=== PATIENT | male | born 1965 | race African-American/Black ===

== ENCOUNTER 2022-10-26 15:44 | Emergency (ER) | payer SELFPAY ==
[2022-10-26 17:15] LABS: SARS-COV-2 RT PCR NEGATIVE (NEGATIVE)
--- NOTE | 2022-10-26 17:27 | RAD REPORT ---
EXAM DESCRIPTION: RAD - Chest Single View - 10/26/2022 5:20 pm CLINICAL HISTORY: COUGH Chest pain. COMPARISON: No comparisons FINDINGS: Portable technique limits examination quality. The lungs are grossly clear. The heart is normal in size. No displaced fractures. IMPRESSION: No acute intrathoracic process suspected.
--- NOTE | 2022-10-26 17:46 | ER ---
Nurse's Notes [facility] Name: Jayjay Cano Age: 57 yrs Sex: Male : 1965 Arrival Date: 10/26/2022 Time: 15:46 Bed IW6 Private MD: Diagnosis: Acute upper respiratory infection, unspecified Presentation: 10/26 15:51 Chief complaint: Patient states: Chest cold, cough, phlegm, N/V/D X 1 week. Coronavirus ld1 screen: At this time, the client does not indicate any symptoms associated with coronavirus-19. Ebola Screen: No symptoms or risks identified at this time. Initial Sepsis Screen: Does the patient meet any 2 criteria? No. Patient's initial sepsis screen is negative. Does the patient have a suspected source of infection? No. Patient's initial sepsis screen is negative. Risk Assessment: Do you want to hurt yourself or someone else? Patient reports no desire to harm self or others. Onset of symptoms was October 26, 2022. 15:51 Method Of Arrival: Ambulatory ld1 15:51 Acuity: JUSTINE 4 ld1 Triage Assessment: 15:52 General: Appears in no apparent distress. comfortable, Behavior is calm, cooperative, ld1 appropriate for age. Pain: Denies pain. EENT: No signs and/or symptoms were reported regarding the EENT system. Neuro: Level of Consciousness is awake, alert, obeys commands, Oriented to person, place, time, situation. Cardiovascular: Capillary refill < 3 seconds Patient's skin is warm and dry. Respiratory: Airway is patent Respiratory effort is even, unlabored. GI: Abdomen is flat, non-distended. : No signs and/or symptoms were reported regarding the genitourinary system. Derm: No signs and/or symptoms reported regarding the dermatologic system. Musculoskeletal: No signs and/or symptoms reported regarding the musculoskeletal system. Historical: - Allergies: 15:52 No Known Allergies; ld1 - PMHx: 15:52 None; ld1 - PSHx: 15:52 None; ld1 - Immunization history:: Adult Immunizations up to date, Client reports receiving the 2nd dose of the Covid vaccine. - Social history:: Smoking status: Patient denies any tobacco usage or history of. Patient/guardian denies using alcohol. Vital Signs: 15:51 BP 157 / 103; Pulse 84; Resp 18; Temp 98.6(TE); Pulse Ox 97% on R/A; Weight 84.82 kg; ld1 Height 5 ft. 9 in. (175.26 cm); Pain 0/10; 15:51 Body Mass Index 27.61 (84.82 kg, 175.26 cm) ld1 ED Course: 15:46 Patient arrived in ED. am2 15:52 Triage completed. ld1 15:52 Arm band placed on right wrist. ld1 15:58 Yumiko Chu FNP [facility]. jh7 15:58 Pk Bobo MD is Attending Physician. jh7 16:05 COVID-19/FLU A+B Sent. ld1 17:22 XRAY Chest (1 view) In Process Unspecified. EDMS 18:07 No provider procedures requiring assistance completed. Patient did not have IV access ld1 during this emergency room visit. Administered Medications: No medications were administered Outcome: 17:45 Discharge ordered by . [facility] 18:07 Patient left the ED. ld1 Signatures: Dispatcher [employer] EDSD Viktoria Ruiz am2 Debra Montero, RN RN ld1 Yumiko Chu FNP FNP [facility] Corrections: (The following items were deleted from the chart) 15:53 15:52 Allergies: Aspirin; ld1 ld1
--- NOTE | 2022-10-26 17:46 | EDPHYS ---
Physician Documentation [facility] Name: Jayjay Cano Age: 57 yrs Sex: Male : 1965 Arrival Date: 10/26/2022 Time: 15:46 Bed IW6 Private MD: ED Physician Pk Bobo HPI: 10/26 16:00 This 57 yrs old Black Male presents to ER via Ambulatory with complaints of Cold jh7 Symptoms, Cough, bodyaches. 16:00 Onset: The symptoms/episode began/occurred 1 week(s) ago. Associated signs and jh7 symptoms: Pertinent positives: congestion, cough, diarrhea, Nausea. Patient reports cough, congestion, body aches, diarrhea, and nausea for 1 week. The patient's has similar symptoms. The patient is requesting a work note.. Historical: - Allergies: 15:52 No Known Allergies; ld1 - PMHx: 15:52 None; ld1 - PSHx: 15:52 None; ld1 - Immunization history:: Adult Immunizations up to date, Client reports receiving the 2nd dose of the Covid vaccine. - Social history:: Smoking status: Patient denies any tobacco usage or history of. Patient/guardian denies using alcohol. ROS: 16:00 Constitutional: Negative for fever, chills, and weight loss, Eyes: Negative for injury, jh7 pain, redness, and discharge, Neck: Negative for injury, pain, and swelling, Cardiovascular: Negative for chest pain, palpitations, and edema, Back: Negative for injury and pain, Skin: Negative for injury, rash, and discoloration, Neuro: Negative for headache, weakness, numbness, tingling, and seizure. 16:00 ENT: Positive for nasal discharge. 16:00 Respiratory: Positive for cough, Negative for shortness of breath, wheezing. 16:00 Abdomen/GI: Positive for nausea, diarrhea, Negative for abdominal pain, constipation. 16:00 All other systems are negative. Exam: 16:00 Constitutional: This is a well developed, well nourished patient who is awake, alert, jh7 and in no acute distress. Head/Face: Normocephalic, atraumatic. Eyes: Pupils equal round and reactive to light, extra-ocular motions intact. Lids and lashes normal. Conjunctiva and sclera are non-icteric and not injected. Cornea within normal limits. Periorbital areas with no swelling, redness, or edema. Cardiovascular: Regular rate and rhythm with a normal S1 and S2. No gallops, murmurs, or rubs. Normal PMI, no JVD. No pulse deficits. Respiratory: Lungs have equal breath sounds bilaterally, clear to auscultation and percussion. No rales, rhonchi or wheezes noted. No increased work of breathing, no retractions or nasal flaring. Abdomen/GI: Soft, non-tender, with normal bowel sounds. No distension or tympany. No guarding or rebound. No evidence of tenderness throughout. Back: No spinal tenderness. No costovertebral tenderness. Full range of motion. Skin: Warm, dry with normal turgor. Normal color with no rashes, no lesions, and no evidence of cellulitis. MS/ Extremity: Pulses equal, no cyanosis. Neurovascular intact. Full, normal range of motion. Neuro: Awake and alert, GCS 15, oriented to person, place, time, and situation. Normal gait. 16:00 ENT: TM's: are normal, Nose: nasal drainage, and is seen coming from both nares, that is clear, Posterior pharynx: Postnasal drainage. Vital Signs: 15:51 BP 157 / 103; Pulse 84; Resp 18; Temp 98.6(TE); Pulse Ox 97% on R/A; Weight 84.82 kg; ld1 Height 5 ft. 9 in. (175.26 cm); Pain 0/10; 15:51 Body Mass Index 27.61 (84.82 kg, 175.26 cm) ld1 MDM: 15:58 Patient medically screened. community hospital 17:45 Differential diagnosis: viral Infection, URI, bronchitis, pneumonia gastroenteritis. community hospital Data reviewed: vital signs, nurses notes, radiologic studies, plain films. Data interpreted: Pulse oximetry: is 97 %. Interpretation: normal. Counseling: I had a detailed discussion with the patient and/or guardian regarding: the historical points, exam findings, and any diagnostic results supporting the discharge/admit diagnosis, to return to the emergency department if symptoms worsen or persist or if there are any questions or concerns that arise at home. 10/26 15:53 Order name: COVID-19/FLU A+B; Complete Time: 17:35 ld1 10/26 16:02 Order name: XRAY Chest (1 view); Complete Time: 17:35 7 Administered Medications: No medications were administered Disposition Summary: 10/26/22 17:45 Discharge Ordered Location: Home [facility] Problem: new community hospital Symptoms: are unchanged community hospital Condition: Stable community hospital Diagnosis - Acute upper respiratory infection, unspecified community hospital Followup: community hospital - With: Private Physician - When: 2 - 3 days - Reason: Recheck today's complaints Discharge Instructions: - Discharge Summary Sheet community hospital - Upper Respiratory Infection, Adult community hospital - Viral Respiratory Infection community hospital Forms: - Medication Reconciliation Form community hospital - Thank You Letter community hospital Prescriptions: - ProAir HFA 90 mcg/actuation Inhalation HFA aerosol inhaler - inhale 2 puff by INHALATION route every 4-6 hours As needed; 1 Inhaler; community hospital Refills: 0, Product Selection Permitted - ondansetron 4 mg Oral tablet,disintegrating - place 1 tablet by TRANSLINGUAL route 4 times per day As needed; 20 tablet; community hospital Refills: 0, Product Selection Permitted - Tessalon Perles 100 mg Oral Capsule - take 1 capsule by ORAL route every 8 hours As needed; 15 capsule; Refills: 0, community hospital Product Selection Permitted Addendum: 10/29/2022 08:00 Co-signature as Attending Physician, Pk Bobo MD I agree with the assessment and c gupta plan of care. Signatures: Dispatcher [employer] Pk Jain MD MD cha Dibbern, Lauren, RN RN ld1 Yumiko Chu FNP [place] [id number] Corrections: (The following items were deleted from the chart) 10/26 15:53 15:52 Allergies: Aspirin; ld1 ld1
[2022-10-26 18:14] VITALS: BP 157/103; TEMP 98.6; O2SAT 97
== END 2022-10-26 18:07 | disposition home or self-care (01) ==
LOC: ER 15:44
DX: J06.9 Acute upper respiratory infection, unspecified (principal); Z20.822 Contact with and (suspected) exposure to COVID-19
CPT/HCPCS: 0240U; 71045; 99283

== ENCOUNTER 2023-11-02 18:03 | Emergency (ER) | payer SELFPAY ==
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
--- NOTE | 2023-11-02 18:37 | ER ---
Nurse's Notes [facility] Name: Jayjay Cano Age: 58 yrs Sex: Male : 1965 Arrival Date: 11/02/2023 Time: 18:03 Bed IW6 Private MD: Diagnosis: Cellulitis to left lateral neck;Lymphadenopathy Presentation: 11/02 18:28 Chief complaint: Patient states: Insect bite to left side of neck. Pt states that he cm10 noticed it Sunday while he was at work. Pt noted to have a red bump on neck. Pt denies fevers. Coronavirus screen: Vaccine status: Patient reports receiving the 2nd dose of the covid vaccine. Client denies travel out of the [place] in the last 14 days. Ebola Screen: Patient denies travel to an Ebola-affected area in the 21 days before illness onset. No symptoms or risks identified at this time. Initial Sepsis Screen: Does the patient meet any 2 criteria? No. Patient's initial sepsis screen is negative. Does the patient have a suspected source of infection? No. Patient's initial sepsis screen is negative. Risk Assessment: Do you want to hurt yourself or someone else? Patient reports no desire to harm self or others. Onset of symptoms was November 02, 2023. 18:28 Method Of Arrival: Ambulatory cm10 18:28 Acuity: JUSTINE 4 cm10 Historical: - Allergies: 18:30 No Known Allergies; cm10 - Home Meds: 18:30 None [Active]; cm10 - PMHx: 18:30 None; cm10 - PSHx: 18:30 None; cm10 - Immunization history:: Adult Immunizations up to date. - Social history:: Smoking status: Patient reports the use of cigarette tobacco products, denies chronic smoking, but will smoke occasionally. Vital Signs: 18:28 BP 122 / 79; Pulse 114; Resp 18; Temp 97.5(IR); Pulse Ox 94% on R/A; Weight 80.29 kg; cm10 Height 5 ft. 9 in. ; Pain 7/10; 18:28 Body Mass Index 26.14 (80.29 kg, 175.26 cm) cm10 18:28 Pain Scale: Adult cm10 ED Course: 18:06 Patient arrived in ED. mg5 18:07 Robby Felix MD is Attending Physician. rt 18:30 Triage completed. cm10 18:30 Arm band placed on Patient placed in waiting room. cm10 Administered Medications: No medications were administered Outcome: 18:37 Discharge ordered by MD. rt 18:44 Discharged to home ambulatory, 18:44 Condition: stable 18:44 Discharge instructions given to patient, Instructed on discharge instructions, follow up and referral plans. medication usage, Demonstrated understanding of instructions, follow-up care, medications, Prescriptions given X 1, 18:44 Patient left the ED. hb Signatures: Farzana Ballard, RN RN hb Robby Felix MD MD rt Genie Deal RN RN cm10 Penny Salazar mg5
--- NOTE | 2023-11-02 18:37 | EDPHYS ---
Physician Documentation [facility] Name: Jayjay Cano Age: 58 yrs Sex: Male : 1965 Arrival Date: 11/02/2023 Time: 18:03 Bed IW6 Private MD: ED Physician Robby Felix HPI: 11/02 19:49 This 58 yrs old Black Male presents to ER via Ambulatory with complaints of Insect Bite.rt 19:49 Patient reports to the ED with reported insect bite to the left side of the neck over rt the past couple days, states has become somewhat red, inflamed. Denies any difficulty swallowing, difficulty breathing, fever, chills. Denies other acute complaints, symptoms are mild in severity, no other aggravating or alleviating factors.. Historical: - Allergies: 18:30 No Known Allergies; cm10 - Home Meds: 18:30 None [Active]; cm10 - PMHx: 18:30 None; cm10 - PSHx: 18:30 None; cm10 - Immunization history:: Adult Immunizations up to date. - Social history:: Smoking status: Patient reports the use of cigarette tobacco products, denies chronic smoking, but will smoke occasionally. ROS: 19:49 Constitutional: Negative for fever, chills, and weight loss, Cardiovascular: Negative rt for chest pain, palpitations, and edema, Respiratory: Negative for shortness of breath, cough, wheezing, and pleuritic chest pain, Abdomen/GI: Negative for abdominal pain, nausea, vomiting, diarrhea, and constipation, Neuro: Negative for headache, weakness, numbness, tingling, and seizure, Psych: Negative for depression, anxiety, suicide ideation, homicidal ideation, and hallucinations, 19:49 Skin: Positive for cellulitis, erythema, Negative for Exam: 19:49 Constitutional: This is a well developed, well nourished patient who is awake, alert, rt and in no acute distress. Head/Face: Normocephalic, atraumatic. Chest/axilla: Normal chest wall appearance and motion. Nontender with no deformity. No lesions are appreciated. Cardiovascular: Regular rate and rhythm with a normal S1 and S2. No gallops, murmurs, or rubs. Normal PMI, no JVD. No pulse deficits. Respiratory: Lungs have equal breath sounds bilaterally, clear to auscultation and percussion. No rales, rhonchi or wheezes noted. No increased work of breathing, no retractions or nasal flaring. Abdomen/GI: Soft, non-tender, with normal bowel sounds. No distension or tympany. No guarding or rebound. No evidence of tenderness throughout. Skin: Warm, dry with normal turgor. Normal color with no rashes, no lesions, and no evidence of cellulitis. Neuro: Awake and alert, GCS 15, oriented to person, place, time, and situation. Cranial nerves II-XII grossly intact. Motor strength 5/5 in all extremities. Sensory grossly intact. Cerebellar exam normal. Normal gait. Psych: Awake, alert, with orientation to person, place and time. Behavior, mood, and affect are within normal limits. 19:49 Neck: 1 cm area of swelling, erythema to the left posterior chain, most compatible with a lymph node, freely mobile, no purulence noted. Bedside ultrasound shows no areas of fluid collection, Vital Signs: 18:28 BP 122 / 79; Pulse 114; Resp 18; Temp 97.5(IR); Pulse Ox 94% on R/A; Weight 80.29 kg; cm10 Height 5 ft. 9 in. ; Pain 7/10; 18:28 Body Mass Index 26.14 (80.29 kg, 175.26 cm) cm10 18:28 Pain Scale: Adult cm10 MDM: 18:31 Patient medically screened. rt 19:49 Differential Diagnosis Abscess, cellulitis, lymphadenopathy. Data reviewed: vital rt signs, nurses notes. Test considered but Not performed: Labs: very minor area of swelling, patient is very well-appearing, do not believe that lab work is indicated at this time. Counseling: I had a detailed discussion with the patient and/or guardian regarding the historical points, exam findings, and any diagnostic results supporting the discharge/admit diagnosis, the need for outpatient follow up, to return to the emergency department if symptoms worsen or persist or if there are any questions or concerns that arise at home. Administered Medications: No medications were administered Disposition Summary: 11/02/23 18:37 Discharge Ordered Notes: Location: Home rt Problem: new rt Symptoms: are unchanged rt Condition: Stable rt Diagnosis - Cellulitis to left lateral neck rt - Lymphadenopathy rt Followup: rt - With: Private Physician - When: 2 - 3 days - Reason: Discharge Instructions: - Discharge Summary Sheet rt - Cellulitis, Adult rt - Lymphadenopathy rt Forms: - Work release form hb - Medication Reconciliation Form rt - Thank You Letter rt - Antibiotic Education rt - Prescription Opioid Use rt - Patient Portal Instructions rt - Leadership Thank You Letter rt Prescriptions: - Doxycycline Monohydrate 100 mg Oral Tablet - take 1 tablet ORAL route every 12 hours for 10 days; 20 tablet; Refills: 0, rt Product Selection Permitted Signatures: Robby Felix MD MD rt Genie Deal, RN RN cm10
[2023-11-02 18:52] VITALS: BP 122/79; TEMP 97.5; O2SAT 94
== END 2023-11-02 18:44 | disposition home or self-care (01) ==
LOC: ER 18:03
DX: L03.221 Cellulitis of neck (principal); R59.1 Generalized enlarged lymph nodes
CPT/HCPCS: 99283

== ENCOUNTER 2024-11-04 12:03 | Emergency (ER) | payer OTHER, SELFPAY ==
[2024-11-04 13:08] LABS: SARS-CoV-2 Antigen CONTROL BLUE LINE VIS/BG OK; SARS-CoV-2 Antigen Rapid Res Negative (Negative)
--- NOTE | 2024-11-04 13:12 | RAD REPORT ---
EXAMINATION: ONE VIEW CHEST XR CLINICAL INDICATION: Cough;Chest pain TECHNIQUE: Frontal chest projection is submitted. Examination is limited by patient positioning and t echnique. COMPARISON: 10/26/2022 FINDINGS: The lungs are well inflated and clear. The heart is normal in size. No displaced fractures identified . IMPRESSION: No acute intrathoracic abnormalities.
--- NOTE | 2024-11-04 13:45 | EDPHYS ---
Physician Documentation [facility] Name: Jayjay Cano Age: 59 yrs Sex: Male : 1965 Arrival Date: 11/04/2024 Time: 12:03 Bed DX4 Private MD: ED Physician Viky Garcia HPI: 11/04 13:31 This 59 yrs old Black Male presents to ER via Ambulatory with complaints of Cough, sp3 Congestion. 13:31 59-year-old male with no past medical history presents with cough, congestion, sp3 subjective fever for the last 2 to 3 days. Potential sick contacts noted. No headache, chest pain, shortness of breath, vomiting, diarrhea, rash, bleeding or any other signs or symptoms on ROS at this time.. Historical: - Allergies: 12:10 No Known Allergies; cm10 - Home Meds: 12:10 None [Active]; cm10 - PMHx: 12:10 None; cm10 - PSHx: 12:10 Right arm; cm10 - Immunization history:: Adult Immunizations up to date. - Infectious Disease History:: Denies. - Social history:: Smoking status: Patient/guardian denies using tobacco, Stopped _ months ago 7. ROS: 13:35 Constitutional: Negative for fever, chills, and weight loss, Eyes: Negative for injury, sp3 pain, redness, and discharge, Neck: Negative for injury, pain, and swelling, Cardiovascular: Negative for chest pain, palpitations, and edema, Abdomen/GI: Negative for abdominal pain, nausea, vomiting, diarrhea, and constipation, Back: Negative for injury and pain, MS/Extremity: Negative for injury and deformity, Skin: Negative for injury, rash, and discoloration, Neuro: Negative for headache, weakness, numbness, tingling, and seizure, Psych: Negative for depression, anxiety, suicide ideation, homicidal ideation, and hallucinations, Allergy/Immunology: Negative for hives, rash, and allergies, Endocrine: Negative for neck swelling, polydipsia, polyuria, polyphagia, and marked weight changes, Hematologic/Lymphatic: Negative for swollen nodes, abnormal bleeding, and unusual bruising, 13:35 All other systems are negative, Exam: 13:35 Constitutional: This is a well developed, well nourished patient who is awake, alert, sp3 and in no acute distress. Head/Face: Normocephalic, atraumatic. Eyes: Pupils equal round and reactive to light, extra-ocular motions intact. Lids and lashes normal. Conjunctiva and sclera are non-icteric and not injected. Cornea within normal limits. Periorbital areas with no swelling, redness, or edema. Neck: Trachea midline, no thyromegaly or masses palpated, and no cervical lymphadenopathy. Supple, full range of motion without nuchal rigidity, or vertebral point tenderness. No Meningismus. Chest/axilla: Normal chest wall appearance and motion. Nontender with no deformity. No lesions are appreciated. Cardiovascular: Regular rate and rhythm with a normal S1 and S2. No gallops, murmurs, or rubs. Normal PMI, no JVD. No pulse deficits. Abdomen/GI: Soft, non-tender, with normal bowel sounds. No distension or tympany. No guarding or rebound. No evidence of tenderness throughout. Back: No spinal tenderness. No costovertebral tenderness. Full range of motion. Skin: Warm, dry with normal turgor. Normal color with no rashes, no lesions, and no evidence of cellulitis. MS/ Extremity: Pulses equal, no cyanosis. Neurovascular intact. Full, normal range of motion. Neuro: Awake and alert, GCS 15, oriented to person, place, time, and situation. Cranial nerves II-XII grossly intact. Motor strength 5/5 in all extremities. Sensory grossly intact. Cerebellar exam normal. Normal gait. Psych: Awake, alert, with orientation to person, place and time. Behavior, mood, and affect are within normal limits. 13:35 Respiratory: Active cough noted., Vital Signs: 12:09 BP 137 / 81; Pulse 93; Resp 16; Temp 99.9(O); Pulse Ox 98% on R/A; Weight 82.55 kg; cm10 Height 5 ft. 9 in. ; Pain 0/10; 13:43 BP 115 / 72; Pulse 89; Resp 17; Temp 99; Pulse Ox 100% ; jl7 12:09 Body Mass Index 26.88 (82.55 kg, 175.26 cm) cm10 12:09 Pain Scale: Adult cm10 MDM: 12:12 Medical Screening Exam initiated sp3 13:39 Data reviewed: vital signs, nurses notes, lab test result(s), radiologic studies. ED sp3 course: 59-year-old male with no past medical history now with URI with differential diagnosis including viral illness, influenza, COVID-19, pneumonia, bronchitis, among others. Chest x-ray clean and flu a is positive. Will safely discharge him home on Tamiflu and follow-up to PCP.. 11/04 12:10 Order name: Flu; Complete Time: 13:13 cm10 11/04 12:10 Order name: SARS RAPID; Complete Time: 13:13 cm10 11/04 12:15 Order name: CXR XRAY; Complete Time: 13:13 sp3 Administered Medications: No medications were administered Disposition Summary: 11/04/24 13:44 Discharge Ordered Notes: Location: Home sp3 Condition: Stable sp3 Diagnosis - Influenza A, viral illness, upper respiratory infection sp3 Followup: sp3 - With: Private Physician - When: Upon discharge from the Emergency Department - Reason: Continuance of care Discharge Instructions: - Discharge Summary Sheet sp3 - Influenza, Adult sp3 Forms: - Work release form jl7 - Medication Reconciliation Form sp3 - Antibiotic Education sp3 - Prescription Opioid Use sp3 - Patient Portal Instructions sp3 - Leadership Thank You Letter sp3 Prescriptions: - Tamiflu 75 mg Oral capsule - take 1 tablet ORAL route every 12 hours for 5 days; 10 tablet; Refills: 0, sp3 Product Selection Permitted Signatures: Dispatcher [employer] EDMS Viky Garcia MD MD sp3 Genie Deal RN RN cm10 Corrections: (The following items were deleted from the chart) 12:11 12:11 Influenza Screen (A \T\ B)+BA.LAB.BRZ ordered. EDMS EDMS 12:11 12:11 SARS-COV-2 Antigen Rapid+I.LAB.BRZ ordered. EDMS EDMS
--- NOTE | 2024-11-04 13:45 | ER ---
Nurse's Notes [facility] Name: Jayjay Cano Age: 59 yrs Sex: Male : 1965 Arrival Date: 11/04/2024 Time: 12:03 Bed DX4 Private MD: Diagnosis: Influenza A, viral illness, upper respiratory infection Presentation: 11/04 12:09 Chief complaint: Patient states: Cough, subjective fever, chills, and diarrhea onset 1 cm10 week ago. Coronavirus screen: Client denies travel out of the [place] in the last 14 days. Ebola Screen: Patient denies travel to an Ebola-affected area in the 21 days before illness onset. No symptoms or risks identified at this time. Initial Sepsis Screen: Does the patient meet any 2 criteria? No. Patient's initial sepsis screen is negative. Does the patient have a suspected source of infection? No. Patient's initial sepsis screen is negative. Risk Assessment: Do you want to hurt yourself or someone else? Patient reports no desire to harm self or others. Onset of symptoms was November 04, 2024. 12:09 Method Of Arrival: Ambulatory cm10 12:09 Acuity: JUSTINE 4 cm10 Historical: - Allergies: 12:10 No Known Allergies; cm10 - Home Meds: 12:10 None [Active]; cm10 - PMHx: 12:10 None; cm10 - PSHx: 12:10 Right arm; cm10 - Immunization history:: Adult Immunizations up to date. - Infectious Disease History:: Denies. - Social history:: Smoking status: Patient/guardian denies using tobacco, Stopped _ months ago 7. Screenin:[address] [facility] ED Fall Risk Assessment (Adult) History of falling in the last 3 months, jl7 including since admission No falls in past 3 months (0 pts) Confusion or Disorientation No (0 pts) Intoxicated or Sedated No (0 pts) Impaired Gait No (0 pts) Mobility Assist Device Used No (0 pt) Altered Elimination No (0 pt) Score/Fall Risk Level 0 - 2 = Low Risk Oriented to surroundings, Maintained a safe environment. Abuse screen: Denies threats or abuse. Denies injuries from another. Nutritional screening: No deficits noted. Tuberculosis screening: No symptoms or risk factors identified. Assessment: 13:43 General: Appears in no apparent distress. uncomfortable, Behavior is calm, cooperative, jl7 appropriate for age. Pain: Denies pain. Neuro: No deficits noted. Cardiovascular: Patient's skin is warm and dry. Respiratory: Airway is patent Respiratory effort is even, unlabored, Respiratory pattern is regular, symmetrical, not auscultated. Derm: Skin is pink, warm \T\ dry. Vital Signs: 12:09 BP 137 / 81; Pulse 93; Resp 16; Temp 99.9(O); Pulse Ox 98% on R/A; Weight 82.55 kg; cm10 Height 5 ft. 9 in. ; Pain 0/10; 13:43 BP 115 / 72; Pulse 89; Resp 17; Temp 99; Pulse Ox 100% ; jl7 12:09 Body Mass Index 26.88 (82.55 kg, 175.26 cm) cm10 12:09 Pain Scale: Adult cm10 ED Course: 12:05 Patient arrived in ED. mr 12:10 Triage completed. cm10 12:11 Arm band placed on right wrist. Patient placed in waiting room. cm10 12:12 Viky Garcia MD is Attending Physician. sp3 12:14 SARS RAPID Sent. cm10 12:14 Flu Sent. cm10 12:14 COVID swab sent to lab. Flu and/or RSV swab sent to lab. cm10 13:07 CXR XRAY In Process Unspecified. [facility] 13:43 Rebecca Grant, RN is Primary Nurse. jl7 13:43 Provided Education on: discharge. jl7 13:43 No provider procedures requiring assistance completed. jl7 13:57 Patient has correct armband on for positive identification. jl7 13:57 Patient did not have IV access during this emergency room visit. jl7 Administered Medications: No medications were administered Medication: 13:43 VIS not applicable for this client. jl7 Outcome: 13:44 Discharge ordered by MD. sp3 13:56 Discharged to home ambulatory, jl7 13:56 Condition: stable 13:56 Discharge instructions given to patient, Instructed on discharge instructions, follow up and referral plans. medication usage, Demonstrated understanding of instructions, follow-up care, medications, Prescriptions given X 1, 13:57 Patient left the ED. jl7 Signatures: Dispatcher [employer] [facility] Gracy Infante, Reg Reg mr Rebecca Grant, RN RN jl7 Viky Garcia MD MD sp3 Genie Deal, JOSE RN cm10
[2024-11-04 14:04] VITALS: BP 115/72; TEMP 99; O2SAT 100
== END 2024-11-04 13:57 | disposition home or self-care (01) ==
LOC: ER 12:03
DX: J10.1 Influenza due to other identified influenza virus with other respiratory manifestations (principal); Z11.52 Encounter for screening for COVID-19
CPT/HCPCS: 36415; 71045; 87804; 87811; 99283